=== PATIENT | male | born 2000 | race Caucasian/White ===

== ENCOUNTER 2020-04-04 03:09 | Emergency (ER) | payer BC, SELFPAY ==
--- NOTE | ~2020-04-04 | XR_ITS ---
XR chest 1V portable DATE: 04/04/2020 04:04 INDICATION: Fever, chest pain with inspiration TECHNIQUE: Portable upright AP chest on 04/14/2020 at 0345 hours COMPARISON: None FINDINGS: Normal heart size. No hilar or mediastinal enlargement. No pulmonary infiltrate or consolid ation, pleural effusion or pulmonary vascular congestion or pneumothorax. IMPRESSION: No active cardiopulmonary disease Reviewed, dictated and finalized at [facility].
--- NOTE | ~2020-04-04 | CT_ITS ---
EXAMINATION: CT abdomen pelvis w con DATE: 04/04/2020 05:04 INDICATION: Abdominal pain, nausea, vomiting TECHNIQUE: Computed tomography (CT) of the abdomen and pelvis was performed with 100 cc Omnipaque 350 intravenous contrast. Automated exposure control and iterative reconstruction technique were employe d. Exam dose: 1173.82 mGy-cm total exam DLP. COMPARISON: None. FINDINGS: The lung bases are clear. Normal heart size. No pericardial or pleural effusion. Mild splenomegaly, the spleen measuring approximately 14 cm vertical dimension. The liver, gallbladder, bile ducts, spleen, pancreas, pancreatic duct, and adrenal glands and kidneys are otherwise appear normal. Normal caliber of the abdominal aorta. No intraperitoneal or retroperitoneal or pelvic mass lesion or adenopathy or ascites. Normal appendix. No bowel obstruction, bowel wall thickening, pneumatosis or intraperitoneal free air . Included skeletal structures are unremarkable. IMPRESSION: Mild splenomegaly; otherwise unremarkable examination Reviewed, dictated and finalized at [facility]. Reviewed, dictated and finalized at location [facility].
[2020-04-04 03:30] VITALS: BP 151/87; PULSE 136; RESP 16; TEMP 37.6; O2SAT 99
[2020-04-04] MEDS: SODIUM CHLORIDE 0.9% IV 1,000 ML 999 ML (03:40)
[2020-04-04] MEDS: KETOROLAC 30 MG/ML VIAL (*BKC) (03:45)
[2020-04-04] MEDS: ONDANSETRON INJ 4 MG/2 ML VIAL (03:45)
[2020-04-04 04:48] VITALS: BP 128/66; PULSE 89; RESP 20; O2SAT 97
[2020-04-04 04:52] LABS: Basophils Percent Auto 0.8 % (0.2-1.2); Eosinophils Absolute Auto 0.2 K/mm3 (0-0.3); Eosinophils Percent Auto 4.1 % (0-4.4); Hematocrit 43.3 % (42.0-52.0); Hemoglobin 15.3 g/dL (14.0-18.0); Immature Granulocyte Absolute 0.02 K/mm3 (0.00-0.031); Immature Granulocyte Percent A 0.4 % (0-0.5); Lymphocytes Percent Auto 12.2 % (18.3-44.2); Mean Corpuscular HGB Conc 35.3 g/dl (32-36); Mean Corpuscular Hemoglobin 27.6 pg (26-34); Mean Platelet Volume 11.4 fl (7.4-10.4); Monocytes Absolute Auto 0.9 K/mm3 (0.1-0.6); Monocytes Percent Auto 17.6 % (2.6-8.5); Neutrophils Absolute Auto 3.2 K/mm3 (1.3-6.7); Neutrophils Percent Auto 64.9 % (45.5-73.1); Platelet Count Result 164 k/mm3 (150-375); Red Blood Count 5.55 M/mm3 (4.6-6.20); Red Cell Distribution Width 12.8 % (11.5-14.5); White Blood Count 4.9 K/mm3 (4.5-10.0)
[2020-04-04 04:57] LABS: Estimated CRCL calculation 88 ml/min; Estimated Glomerular Filt Rate 60
[2020-04-04 05:13] LABS: Alanine Aminotransferase 36 U/L (4-50); Albumin Level 4.7 g/dL (3.5-5.1); Alkaline Phosphatase 94 U/L (38-126); Anion Gap 13 mmol/L (8-16); Aspartate Amino Transferase 32 U/L (17-59); Bilirubin,Total 0.4 mg/dL (0.2-1.3); Blood Urea Nitrogen 10 mg/dL (9-20); Calcium 9.4 mg/dL (8.4-10.2); Carbon Dioxide 23 mmol/L (22-30); Chloride 102 mmol/L (98-107); Estimated CRCL calculation 94 ml/min; Estimated Glomerular Filt Rate > 60; Glucose 132 mg/dL (75-110); Lipase 28 U/L (23-300); Potassium 3.7 mmol/L (3.4-5.0); Sodium 138 mmol/L (137-145)
[2020-04-04] MEDS: SODIUM CHLORIDE 0.9% IV 1,000 ML 999 ML IV CONT (05:19)
--- NOTE | 2020-04-04 05:20 | ED.GENADULT ---
HPI - General Adult General Chief complaint: Fever Stated complaint: URI Time Seen by Provider: 04/04/20 03:49 Source: RN notes reviewed History of Present Illness HPI narrative: Patient presents emergency department from home for fever patient states he began to feel bad 5 days ago. He states that on Wednesday of this past week he began to have an episode of nausea and vomiting as well as a low-grade fever. He states that then throughout the week he has had a intermittent fever. He states that with this he has had intermittent headache is located in his posterior head. He states that he had had no further nausea and vomiting until today and this was prompted to come to the emergency department he denies any vision changes rhinorrhea sore throat cough chest pain diarrhea or any other symptoms he states he was seen at [facility] yesterday and has a covert swab that is pending he states that he was with another friend who has COVID test pending from last week patient states he is finishing a course of Bactrim for which she was placed on for an infection around his bellybutton that is improving Related Data Allergies Allergy/AdvReac Type Severity Reaction Status Date / Time No Known Allergies Allergy Verified 04/04/20 04:08 Review of Systems Review of Systems: Narrative: Gen.: Denies fevers or chills Eyes: Denies eye pain or visual change ENT: Denies congestion Respiratory: Denies shortness of breath or cough CV: Denies chest pain or palpitations GI: Denies abdominal pain reports vomiting diarrhea denies burning, urgency, frequency or hematuria Musculoskeletal: Denies back pain or muscle pain Neuro: Denies numbness, tingling, weakness or focal weakness reports headache Skin: Denies rash Except as documented, all other systems reviewed and negative PMFSH Past Medical History Medical History Patient denies significant medical history Social History Social History Smoking status: Never smoker Exam Narrative: Exam Narrative: APPEARANCE: No acute distress, nontoxic, resting in bed EYES: EOMI, Humberto HEENT: Normocephalic, atraumatic, TMs clear bilaterally, nares patent, oral mucosa moist, no erythema exudate posterior pharynx Neck: Supple, no midline tenderness palpation, no anterior cervical lymphadenopathy, 1 single enlarged lymph node over the left superior posterior neck that is nontender and mobile, full range of motion neck without pain no managements RESPIRATORY: No respiratory distress Clear to auscultation bilaterally with no rhonchi wheezing or rales. CARDIOVASCULAR: Regular rate and rhythm without murmurs rubs or gallops. ABDOMINAL: Soft, nondistended, tender palpation right lower quadrant left lower quadrant, no tenderness right upper quadrant left upper quadrant, no rebound or guarding MUSCULOSKELETAl: Moves all extremities. No clubbing, cyanosis or edema. NEURO: Awake and alert x 4. Following commands, speech normal, no focal deficits SKIN:: Warm, dry. No rashes lesions or abrasions PSYCHIATRIC: Normal affect/mood, Course Course Emergency Course: Patient states he is feeling much better this time states headache is resolved. States he is very hungry Patient states that they are feeling much better at this time. States abdominal pain has resolved. Repeat abdominal exam shows the patient's abdomen to be soft and nontender. Discussed with patient results of workup and diagnosis. Discussed need for follow-up with primary care physician, reasons to return to the emergency department in proper use of medication. Patient understands and agrees to current treatment plan. Discussed with patient remain in self isolation till covert swab is returned from the urgent care Vital Signs Vital signs: Vital Signs Temperature 99.7 F H 04/04/20 03:30 Pulse Rate 136 H 04/04/20 03:30 Respiratory Rate 16 04/04/20 03:30 Blood P
[2020-04-04 06:20] LABS: Add Urine Microscopic? YES; Appearance Urine Clear (Clear); Bilirubin Urine Negative (Negative); Blood Urine Negative (Negative); Color Urine Yellow (Yellow); Glucose Urine UA Negative (Negative); Ketones Urine 1+ mg/dL (Negative); Leukocyte Esterase Ur Negative LEU/UL (Negative); Mucus Urine Few /lpf; Nitrate Urine Negative (Negative); Protein Urine 1+ mg/dL (Negative); Transitional Epi Cells Urine Rare /hpf (None Seen); WBC Urine 0-3 /hpf
[2020-04-04 06:21] LABS: Specific Grav Ur 1.059 (1.001-1.035)
[2020-04-04 06:39] VITALS: BP 115/73; PULSE 85; RESP 17; O2SAT 100
== END 2020-04-04 06:43 | disposition home or self-care (01) ==
PROVIDERS: Emergency Provider Emergency Medicine; PCP Family Medicine
DX: Z20.828 Contact with and (suspected) exposure to other viral communicable diseases (principal)
CPT/HCPCS: 36415; 71045; 74177; 80053; 81001; 83690; 85025; 96361; 96374; 96375; 99284; J1885; J2405; J7030; Q9967